=== PATIENT | male | born 1980 | race Caucasian/White ===

== ENCOUNTER 2019-11-25 12:06 | Emergency (ER) | payer SELFPAY ==
[2019-11-25 12:10] VITALS: BP 100/57
[2019-11-25] MEDS ORDERED: HYDROCODONE/ACETAMINOPHEN 5-325 MG TABLET PO ONE (12:28)
[2019-11-25] MEDS ORDERED: CLINDAMYCIN 300 MG/D5W RTU 300 MG/50 ML RTUPB IV ONE (12:32)
--- NOTE | 2019-11-25 12:32 | ER Document Report ---
ED Medical Screen (RME) - General Chief Complaint: Hand Injury Stated Complaint: RIGHT HAND PAIN, SWELLING Time Seen by Provider: 11/25/19 12:23 Notes: Patient is a 39-year-old male presents emergency department with a chief complaint of right hand pain. Week ago the patient got cut by a machete when he was camping. He sustained a cut to his right fourth digit knuckle. States that it started to get better, but over the past couple days is gotten worse. Denies any fever, body aches, or chills. States that he is up-to-date on his tetanus vaccine. Exam: Patient having difficulty fully extending right fourth digit. Concern for possible tenosynovitis. I have greeted and performed a rapid initial assessment of this patient. A comprehensive ED assessment and evaluation of the patient, analysis of test results and completion of medical decision making process will be conducted by an additional ED providers. - Related Data Allergies/Adverse Reactions: No Known Allergies Allergy (Verified 11/25/19 12:22) Physical Exam - Vital signs Vitals: Temp Pulse Resp BP Pulse Ox 97.5 F 82 20 100/57 L 100 11/25/19 12:11/25/19 12:11/25/19 12:11/25/19 12:11/25/19 12:09 Course - Vital Signs Vital signs: Temp Pulse Resp BP Pulse Ox 97.5 F 82 20 100/57 L 100 11/25/19 12:11/25/19 12:11/25/19 12:11/25/19 12:11/25/19 12:09
[2019-11-25] MEDS ORDERED: LIDOCAINE 1% INJ-PF (10 MG/ML) 30 ML SDV INJ ONE (13:00)
--- NOTE | 2019-11-25 13:10 | RADIOLOGY REPORT (SQ) ---
EXAM DESCRIPTION: HAND RIGHT 3 VIEWS IMAGES COMPLETED DATE/TIME: 11/25/2019 12:43 pm REASON FOR STUDY: right hand cut; swelling 4th digit cut. COMPARISON: None. EXAM PARAMETERS: NUMBER OF VIEWS: Three views. TECHNIQUE: AP, lateral and oblique radiographic images acquired of the right hand. LIMITATIONS: Patient positioning. FINDINGS: MINERALIZATION: Normal. BONES: The patient was imaged with the fingers flexed. There is a linear lucency at the tuft of the 5th distal phalanx, may represent nondisplaced fracture versus prominent vascular channel. Otherwise , no obvious acute fracture or dislocation. SOFT TISSUES: No soft tissue swelling. No radiopaque foreign body. IMPRESSION: Linear lucency at the tuft of the right 5th distal phalanx, may represent nondisplaced f racture versus prominent vascular channel. Please correlate with point tenderness. TECHNICAL DOCUMENTATION: JOB ID: [id number] [employer]- All Rights Reserved Reading location - IP/workstation name: [email or web address]
--- NOTE | 2019-11-25 13:25 | ER Document Report ---
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 Patient states that he sustained a superficial laceration to the spot approximately 1 week ago while camping and using a machete. Over the last several days this appears to have gotten infected. He denies nausea, vomiting, fever or chills. States that he has had a booster on his tetanus shot within the last 5 years. Patient denies any history of diabetes. Takes no regular medications and has no known allergies. 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 HENT: Negative for sore throat. Eyes: Negative for visual changes. Cardiovascular: Negative for chest pain. Respiratory: Negative for shortness of breath. Gastrointestinal: Negative for abdominal pain, vomiting or diarrhea. Genitourinary: Negative for dysuria. Musculoskeletal: Negative for back pain. Skin: As per HPI. Neurological: Negative for headaches, weakness or numbness. 10 point ROS negative except as marked above and in HPI. Physical Exam - Vital signs Vitals: Temp Pulse Resp BP Pulse Ox 97.5 F 82 20 100/57 L 100 11/25/19 12:09 11/25/19 12:09 11/25/19 12:09 11/25/19 12:11/25/19 12:09 - Notes Notes: GENERAL: Well-developed well-nourished appearing in no acute distress. SKIN: Good turgor HEAD: Normocephalic atraumatic. EYES: PERRLA. EOMI. Conjunctivae and sclerae clear. EARS: CANALS AND TMS CLEAR. NOSE: CLEAR. MOUTH: Moist mucosa. Good dentition. No stridor or edema. No drooling. NECK: Supple. No masses or thyromegaly. No adenopathy. Carotids 2+ without bruits. No JVD. BACK: Symmetrical without tenderness. CHEST: Respirations unlabored. Breath sounds clear and symmetrical. HEART: Regular rhythm. No murmur gallop or rub. ABDOMEN: Soft nontender without masses, organomegaly or rebound. Bowel sounds normally active. No bruits. GENITALIA: Deferred. EXTREMITIES: Patient has a 2.5 cm area of redness, swelling and fluctuance with some yellow drainage over the dorsal aspect of the MCP joint of the right middle finger. The area is slightly warm. There is some surrounding soft tissue edema. No edema. No calf tenderness. Cap refill less than 1.5 seconds. Dorsalis pedis and posterior tibial pulses 3+ and symmetrical. NEUROLOGICAL: GCS 15. Alert and oriented x3. Normal gait. Fluent speech. Cranial nerves II through XII intact. Sensorimotor and cerebellar normal. N ormal tone. PSYCHIATRIC: Appropriate affect. Course - Re-evaluation Re-evalutation: 11/25/19 15:25 Patient had no fever no elevation of white count. I&D of the lesion over the dorsum of the hand was attempted and we got very little pus out of this. This appears to be primary cellulitis. He was given an IV dose of clindamycin here. His pain is been controlled with oral Percocet. Case was discussed with on-call orthopedist, Dr. Alba, and he recommends that we send this man out on oral antibiotics and Percocet and allow him to return to his home in the [facility] to follow-up with his local doctor or a local emergency department within the next 24 hours. Findings, clinical impression and plan of treatment have been discussed with patient/family. Understanding of current findings and recommendations has been acknowledged by them and there is agreement regarding disposition and follow-up. - Vital Signs Vital signs: Temp Pulse Resp BP Pulse Ox 97.5 F 82 20 100/57 L 100 11/25/19 12:09 11/25/19 12:09 11/25/19 12:09 11/25/19 12:11/25/19 12:09 - Laboratory Result Diagrams: 11/25/19 13:14 11/25/19 13:14 Laboratory results interpreted by me: 11/25/19 11/25/19 13:14 13:14 WBC 12.7 H RBC 4.19 L Hgb 13.3 L Lymph % (Auto) 12.8 L Absolute Neuts (auto) 10.0 H Seg Neutrophils % 78.9 H Sodium 135.3 L Glucose 119 H Procedures - Incision and Drainage Right Dorsal Hand 3rd digit Type: Simple, Single Anesthetic type: 1% Lidocaine mL's of anesthetic: 3 Blade size: 11 I&D procedure: Betadine prep applied Incision Method: Incision made by scalpel Amount/type of drainage: minimal purulent Notes: 11/25/19 13:47 sterile dressing Discharge - Discharge Clinical Impression: Wound infection/cellulitis right hand Condition: Stable Disposition: HOME, SELF-CARE Additional Instructions: Soak hand frequently in warm salt water. Take prescribed medications. See your physician for follow-up examination within the next 24 hours. Return to the hospital immediately if you develop high fever, shaking chills or nausea/vomiting. Prescriptions: Oxycodone HCl/Acetaminophen [Percocet 5-325 mg Tablet] 1 - 2 tab PO Q4H PRN #15 tablet PRN Reason: Oxycodone HCl/Acetaminophen [Percocet 5-325 mg Tablet] 1 - 2 tab PO Q4H PRN #15 tablet PRN Reason: Sulfamethoxazole/Trimethoprim [Septra-Ds 800-160 mg Tablet] 2 tab PO BID 10 Days #20 tablet
[2019-11-25 13:41] LABS: ABSOLUTE BASOPHILS # (AUTO) 0.1 10^3/uL (0.0-0.2); ABSOLUTE EOSINOPHILS # (AUTO) 0.2 10^3/uL (0.0-0.6); ABSOLUTE LYMPHOCYTES (AUTO) 1.6 10^3/uL (0.5-4.7); ABSOLUTE MONOCYTES (AUTO) 0.8 10^3/uL (0.1-1.4); BASOPHILS % (AUTO) 0.8 % (0-2); EOSINOPHILS % (AUTO) 1.4 % (0-6); HEMATOCRIT 38.7 % (37.9-51.0); HEMOGLOBIN 13.3 g/dL (13.5-17.0); LYMPHOCYTES % (AUTO) 12.8 % (13-45); MEAN CORPUSCULAR HEMOGLOBIN 31.7 pg (27.0-33.4); MEAN CORPUSCULAR HGB CONC 34.3 g/dL (32.0-36.0); MEAN CORPUSCULAR VOLUME 92 fl (80-97); MONOCYTES % (AUTO) 6.1 % (3-13); PLATELET COUNT 338 10^3/uL (150-450); RED BLOOD COUNT 4.19 10^6/uL (4.35-5.55); RED CELL DISTRIBUTION WIDTH 13.3 % (11.5-14.0); SEGMENTED NEUTROPHILS % (AUTO) 78.9 % (42-78); TOTAL CELLS COUNTED % (AUTO) 100 %; WHITE BLOOD COUNT 12.7 10^3/uL (4.0-10.5)
[2019-11-25 14:02] LABS: ANION GAP 7 (5-19); BLOOD UREA NITROGEN 16 mg/dL (7-20); CALCIUM 9.6 mg/dL (8.4-10.2); CARBON DIOXIDE 27 mmol/L (22-30); CHLORIDE 101 mmol/L (98-107); GLUCOSE 119 mg/dL (75-110); POTASSIUM 4.5 mmol/L (3.6-5.0)
== END 2019-11-25 16:14 | disposition home or self-care (01) ==
LOC: ER 12:06
DX: L03.113 Cellulitis of right upper limb (principal)
CPT/HCPCS: 99283; 96365; 36415; 87040; 85025; 80048; 87150 ×26; 73130; 10060; J3490 ×2; 87077